=== PATIENT | female | born 1985 | race African-American/Black ===

== ENCOUNTER 2017-02-01 01:13 | Emergency (ER) | payer SELFPAY ==
[~2017-02-01] VITALS: Ht 165.1 cm; Wt 56.8 kg
[2017-02-01] MEDS ORDERED: LEVO1TAB69 PO (01:38)
[2017-02-01] MEDS ORDERED: ALBUTEROL SULFATE 5 MG/ML 20 ML NEB SOLN [BULK] NEB ONE (01:45)
[2017-02-01] MEDS ORDERED: 0.9% SODIUM CHLORIDE 5 ML NEB SOLUTION NEB ONE (01:45)
[2017-02-01] MEDS ORDERED: IPRATROPIUM BROMIDE 0.5 MG/2.5 ML NEB SOLUTION NEB ONE (01:45)
[2017-02-01 04:16] VITALS: BP 119/80
== END 2017-02-01 04:21 | disposition home or self-care (01) ==
LOC: EMS 01:15
DX: J45.909 Unspecified asthma, uncomplicated (principal); H10.10 Acute atopic conjunctivitis, unspecified eye
CPT/HCPCS: 94644; 99285; J7611

== ENCOUNTER 2017-11-30 08:28 | Emergency (ER) | payer SELFPAY ==
[~2017-11-30] VITALS: Ht 165.1 cm; Wt 59.1 kg
[~2017-11-30 08:28] MED LIST: LEVO1TAB69 PO
[2017-11-30] MEDS ORDERED: ALBU8.5H8 IH (08:38)
[2017-11-30 09:39] VITALS: BP 127/82
== END 2017-11-30 10:35 | disposition home or self-care (01) ==
LOC: EMS 08:29
DX: S60.022A Contusion of left index finger without damage to nail, initial encounter (principal); J45.909 Unspecified asthma, uncomplicated; W23.0XXA Caught, crushed, jammed, or pinched between moving objects, initial encounter; Y93.89 Activity, other specified; Y92.89 Other specified places as the place of occurrence of the external cause; Y99.8 Other external cause status
CPT/HCPCS: 11740; 99284

== ENCOUNTER 2018-05-13 10:32 | Emergency (ER) | payer SELFPAY ==
[~2018-05-13] VITALS: Ht 165.1 cm; Wt 59.1 kg
[~2018-05-13 10:32] MED LIST changes: +ALBU8.5H8 IH; -LEVO1TAB69 PO
[2018-05-13] MEDS ORDERED: BIRTH CONTROL PO (10:44)
[2018-05-13] MEDS ORDERED: CRAN1CAP2 PO (10:44)
[2018-05-13 13:43] VITALS: BP 120/71
== END 2018-05-13 13:45 | disposition home or self-care (01) ==
LOC: EMS 10:35
DX: N39.0 Urinary tract infection, site not specified (principal)
CPT/HCPCS: 99282

== ENCOUNTER 2018-05-30 06:01 | Emergency (ER) | payer SELFPAY ==
[~2018-05-30] VITALS: Ht 165.1 cm; Wt 59.1 kg
[~2018-05-30 06:01] MED LIST changes: +BIRTH CONTROL PO; +CRAN1CAP2 PO
[2018-05-30] MEDS ORDERED: BENZOCAINE 20%/MENTHOL 56 GM SPRAY CANISTER TP ONE (07:45)
[2018-05-30 08:07] VITALS: BP 134/91
[2018-05-30] MEDS ORDERED: LIDOCAINE HCL 1% 10 ML VIAL INJ ONE (08:15)
== END 2018-05-30 08:45 | disposition home or self-care (01) ==
LOC: EMS 06:01
DX: S51.011A Laceration without foreign body of right elbow, initial encounter (principal); J45.909 Unspecified asthma, uncomplicated; W45.8XXA Other foreign body or object entering through skin, initial encounter; Y93.89 Activity, other specified; Y92.89 Other specified places as the place of occurrence of the external cause; Y99.8 Other external cause status
CPT/HCPCS: 12002; 99283